=== PATIENT | female | born 1995 | race Caucasian/White ===

== ENCOUNTER 2017-01-15 22:31 | Emergency (ER) | payer OTHER ==
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
--- NOTE | 2017-01-17 07:01 | ED MAR SUMMARY ---
..... Medication Administration Record [facility] [address] [place], [place] [id number] Patient: MECHE VANEGAS Visit ID: [id number] 21y, F Weight: 63.5 kg Height/Length: 65 in BMI: 23.3 ALLERGIES: "Injectables", Penicillin
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
--- NOTE | 2017-01-17 07:01 | ED MED RECONCILIATION SUMMARY ---
Patient: MECHE VANEGAS Medication Reconciliation Report [facility] VisitID: [id number] [address] [place] [address] 21y, F Registration Date/Time: 01/15/2017 Weight: 63.5 kg Height/Length: 65 in. BMI: 23.3 ALLERGIES: "Injectables", Penicillin The patient's Home Medications are listed below: THE FOLLOWING MEDICATIONS NEED TO BE RECONCILED: Depakote Oral Vistaril Oral The source(s) of the original Home Medication information: Not obtained. The following Medications were given to the patient in the Emergency Department: None. The following Medications were prescribed to the patient: Motrin (available over the counter): take according to label instructions. -- Cem Velez MD
--- NOTE | 2017-01-17 07:01 | ED MAR SUMMARY ---
..... Medication Administration Record [facility] [address] [place], [place] [id number] Patient: MECHE VANEGAS Visit ID: [id number] 21y, F Weight: 63.5 kg Height/Length: 65 in BMI: 23.3 ALLERGIES: "Injectables", Penicillin
== END 2017-01-16 07:08 | disposition home or self-care (01) ==
LOC: ED SRH 22:31
DX: R51 Headache (principal); V49.9XXA Car occupant (driver) (passenger) injured in unspecified traffic accident, initial encounter; Y93.I9 Activity, other involving external motion; Y92.410 Unspecified street and highway as the place of occurrence of the external cause; Y99.9 Unspecified external cause status; F17.210 Nicotine dependence, cigarettes, uncomplicated